=== PATIENT | female | born 2000 | race Caucasian/White ===

== ENCOUNTER 2021-04-19 11:22 | Emergency (ER) | payer BC ==
[2021-04-19] MEDS ORDERED: diphenhydrAMINE 50 MG/ML VIAL ONE (12:15)
[2021-04-19] MEDS ORDERED: Magnesium 2 GM/50 ML BAG (IN WATER) ONE (12:16)
[2021-04-19] MEDS ORDERED: Ketamine 50 MG/ML (10ML VIAL) ONE (14:21)
== END 2021-04-19 15:39 | disposition home or self-care (01) ==
LOC: CSHERS 11:22
DX: G43.909 Migraine, unspecified, not intractable, without status migrainosus (principal)
CPT/HCPCS: 96365; 96367; 96375; J1200; J3475